=== PATIENT | female | born 1960 | race Caucasian/White ===

== ENCOUNTER 2017-10-19 12:26 | Emergency (ER) | payer MEDICAID ==
[~2017-10-19] VITALS: Ht 156.2 cm; Wt 105.0 kg
[~2017-10-19 12:26] MED LIST: COL0.6T
[2017-10-19 12:57] LABS: CLARITY,URINE CLOUDY (Clear); COLOR,URINE STRAW (Yellow); GLUCOSE, URINE NEGATIVE (Neg); KETONES,URINE NEGATIVE (Neg); LEUKOCYTE ESTERASE ,URINE LARGE (Neg); NITRITES, URINE NEGATIVE (Neg); OCCULT BLOOD,URINE LARGE (Neg); PROTEIN,URINE 30 mg/dl (Neg); UROBILINOGEN,URINE 0.2 E.U/dL (0.2-1.0)
[2017-10-19 13:03] LABS: UA COLLECTION TYPE CLN CATCH MIDSTREAM
[2017-10-19 13:04] LABS: BACTERIA,URINE 2+ /HPF (Neg); MUCUS STRANDS NONE SEEN /LPF (Neg); SQUAMOUS EPITHELIAL CELL,UR FEW /LPF (FEW); WBC CLUMPS,URINE MODERATE /HPF (NEGATIVE); WBC,URINE TNTC /HPF (0-4)
[2017-10-19] MEDS ORDERED: nitrofuran/nitrofuran macrocrysal 100 MG capsule PO ONE (14:05)
[2017-10-19] MEDS ORDERED: NITR100C6 PO (14:06)
[2017-10-19 14:23] VITALS: BP 92/57
== END 2017-10-19 14:24 | disposition home or self-care (01) ==
LOC: ER 12:26
DX: N39.0 Urinary tract infection, site not specified (principal); E78.00 Pure hypercholesterolemia, unspecified; M19.90 Unspecified osteoarthritis, unspecified site; Z90.710 Acquired absence of both cervix and uterus; Z79.899 Other long term (current) drug therapy
CPT/HCPCS: 81001; 87077; 87088; 87186; 99284

== ENCOUNTER 2020-03-05 17:59 | Emergency (ER) | payer MEDICAID ==
[~2020-03-05] VITALS: Ht 154.9 cm; Wt 97.7 kg
[~2020-03-05 17:59] MED LIST changes: +NITR100C6 PO
[2020-03-05] MEDS ORDERED: morphine 4 MG/ML inj SYRINge IM ONE (18:50)
[2020-03-05] MEDS ORDERED: ondansetron/PF 4mg/2ml inj IM ONE (18:50)
[2020-03-05 19:35] LABS: COLOR,URINE YELLOW (Yellow); GLUCOSE, URINE NEGATIVE (Neg); KETONES,URINE NEGATIVE (Neg); LEUKOCYTE ESTERASE ,URINE MODERATE (Neg); NITRITES, URINE NEGATIVE (Neg); OCCULT BLOOD,URINE MODERATE (Neg); PROTEIN,URINE NEGATIVE (Neg); UROBILINOGEN,URINE 0.2 E.U/dL (0.2-1.0)
[2020-03-05 19:41] LABS: UA COLLECTION TYPE CLN CATCH MIDSTREAM
[2020-03-05 19:42] LABS: BACTERIA,URINE 1+ /HPF (Neg); CLARITY,URINE SLIGHTLY CLOUDY (Clear); RBC,URINE 0-2 /HPF (0-2); SQUAMOUS EPITHELIAL CELL,UR FEW /LPF (FEW)
[2020-03-05 20:38] LABS: BASOPHILS # (AUTO) 0.1 X10'3 (0-0.2); BASOPHILS % (AUTO) 0.5 % (0-1); EOSINOPHILS # (AUTO) 0.1 X10'3 (0-0.9); EOSINOPHILS % (AUTO) 0.9 % (0-6); HEMATOCRIT 40.4 % (35.0-45.0); HEMOGLOBIN 13.4 g/dl (12.0-16.0); LYMPHOCYTES # (AUTO) 1.2 X10'3 (1.1-4.8); LYMPHOCYTES % (AUTO) 10.5 % (21-51); MEAN CORPUSCULAR HEMOGLOBIN 31.3 PG (27.0-31.0); MEAN CORPUSCULAR HGB CONC 33.2 g/dL (33.0-36.5); MEAN CORPUSCULAR VOLUME 94.1 FL (78-98); MEAN PLATELET VOLUME 7.1 FL (7.4-10.4); MONOCYTES # (AUTO) 0.4 X10'3 (0-0.9); MONOCYTES % (AUTO) 3.5 % (2-12); NEUTROPHILS # (AUTO) 9.7 X10'3 (1.8-7.7); NEUTROPHILS % (AUTO) 84.6 % (42-75); PLATELET COUNT 481 X10'3 (140-440); RED BLOOD COUNT 4.29 X10'6 (4.20-5.60); RED CELL DISTRIBUTION WIDTH 14.3 % (11.5-14.5); WHITE BLOOD COUNT 11.5 X10'3 (4.5-11.0)
[2020-03-05 21:07] LABS: ALANINE AMINOTRANSFERASE 17 U/L (12-78); ALBUMIN 3.4 G/DL (3.4-5.0); ALBUMIN/GLOBULIN RATIO 0.9 (1.1-1.5); ALKALINE PHOSPHATASE 141 IU/L (46-116); ANION GAP 5 (8-16); ASPARTATE AMINO TRANSFERASE 17 U/L (10-37); BILIRUBIN,TOTAL 0.3 MG/DL (0.1-1.0); BLOOD UREA NITROGEN 22 MG/DL (7-18); C-REACTIVE PROTEIN 2.55 MG/DL (0.0-0.5); CALCIUM 8.9 MG/DL (8.5-10.1); CHLORIDE 103 MMOL/L (99-107); CREATININE 1.05 MG/DL (0.40-0.90); GLUCOSE 141 MG/DL (70-104); LIPASE 191 U/L (73-393); POTASSIUM 3.4 MMOL/L (3.5-5.1); SODIUM 136 MMOL/L (135-145); TOTAL CARBON DIOXIDE 28.4 MMOL/L (24-32); TOTAL PROTEIN 7.3 G/DL (6.4-8.2); eGFR 53 ML/MIN
[2020-03-05] MEDS ORDERED: AMOX-422 PO (21:34)
[2020-03-05] MEDS ORDERED: TRAM50TA2 PO (21:34)
[2020-03-05 22:18] VITALS: BP 160/76
== END 2020-03-05 22:19 | disposition home or self-care (01) ==
LOC: ER 17:59
DX: M54.5 Low back pain (principal); N39.0 Urinary tract infection, site not specified; E78.00 Pure hypercholesterolemia, unspecified; M19.90 Unspecified osteoarthritis, unspecified site; G89.29 Other chronic pain; Z90.710 Acquired absence of both cervix and uterus; Z79.899 Other long term (current) drug therapy
CPT/HCPCS: 36415; 72131; 80053; 81001; 83605; 83690; 84145; 85025; 85651; 86140; 87040; 87077; 87088; 87186; 96372; 99284; J2270; J2405

== ENCOUNTER 2020-08-23 06:04 | Emergency (ER) | payer MEDICAID ==
[~2020-08-23] VITALS: Ht 154.9 cm; Wt 97.7 kg
[2020-08-23 06:12] VITALS: BP 173/92
[2020-08-23] MEDS ORDERED: acetaminophen 325mg tablet PO ONE (06:30)
[2020-08-23] MEDS ORDERED: ketorolac tromethamine 15mg/ml inj. IM ONE (06:30)
[2020-08-23 06:33] LABS: CLARITY,URINE SLIGHTLY CLOUDY (Clear); COLOR,URINE YELLOW (Yellow); GLUCOSE, URINE NEGATIVE (Neg); KETONES,URINE NEGATIVE (Neg); LEUKOCYTE ESTERASE ,URINE MODERATE (Neg); NITRITES, URINE POSITIVE (Neg); OCCULT BLOOD,URINE MODERATE (Neg); PROTEIN,URINE 30 mg/dl (Neg); UROBILINOGEN,URINE 0.2 E.U/dL (0.2-1.0)
[2020-08-23 06:35] LABS: UA COLLECTION TYPE CLN CATCH MIDSTREAM
[2020-08-23 06:38] LABS: WBC,URINE TNTC /HPF (0-4)
[2020-08-23 06:39] LABS: BACTERIA,URINE 4+ /HPF (Neg); SQUAMOUS EPITHELIAL CELL,UR FEW /LPF (FEW)
[2020-08-23] MEDS ORDERED: CEFD300C3 PO (07:32)
== END 2020-08-23 07:56 | disposition home or self-care (01) ==
LOC: ER 06:04
DX: N39.0 Urinary tract infection, site not specified (principal); M54.5 Low back pain; E78.00 Pure hypercholesterolemia, unspecified; I10 Essential (primary) hypertension; G89.29 Other chronic pain; F17.200 Nicotine dependence, unspecified, uncomplicated; Z79.899 Other long term (current) drug therapy
CPT/HCPCS: 81001; 87077; 87088; 87186; 96372; 99283; J1885

== ENCOUNTER 2020-10-08 15:13 | Emergency (ER) | payer MEDICAID ==
[~2020-10-08] VITALS: Ht 154.9 cm; Wt 103.0 kg
[2020-10-08 15:46] VITALS: BP 160/74
[2020-10-08] MEDS ORDERED: AMOX-422 PO (16:18)
== END 2020-10-08 16:26 | disposition home or self-care (01) ==
LOC: ER 15:13
DX: J32.9 Chronic sinusitis, unspecified (principal); E78.00 Pure hypercholesterolemia, unspecified; G89.29 Other chronic pain; I10 Essential (primary) hypertension; M19.90 Unspecified osteoarthritis, unspecified site; Z90.710 Acquired absence of both cervix and uterus; Z79.2 Long term (current) use of antibiotics; Z79.899 Other long term (current) drug therapy
CPT/HCPCS: 99283

== ENCOUNTER 2020-11-17 14:41 | Emergency (ER) | payer MEDICAID ==
[~2020-11-17] VITALS: Ht 154.9 cm; Wt 102.0 kg
[2020-11-17 15:32] VITALS: BP 171/88
--- NOTE | 2020-11-17 15:49 | NUR ---
PT TO CT VIA [facility] WITH CHIROPRACTIC PHYSICIAN
--- NOTE | 2020-11-17 16:36 | NUR ---
PATIENT IS BEING PREPARED FOR DC, BUT STATES SHE HAS TO GO TO THE BATHROOM AND REFUSES TO USE COMMODE. DC PAPERWORK GIVEN AND VERBALIZED UNDERSTANDING. DEPARTED TO BATHROOM IN HALLWAY WITH BELONGINGS.
== END 2020-11-17 16:40 | disposition home or self-care (01) ==
LOC: ER 14:42
DX: M25.561 Pain in right knee (principal); R51.9 Headache, unspecified; E78.00 Pure hypercholesterolemia, unspecified; I10 Essential (primary) hypertension; G89.29 Other chronic pain; Z87.440 Personal history of urinary (tract) infections; Z90.710 Acquired absence of both cervix and uterus; Z79.899 Other long term (current) drug therapy
CPT/HCPCS: 70450; 73564; 99284

== ENCOUNTER 2022-12-19 10:03 | Emergency (ER) | payer MEDICAID ==
[~2022-12-19] VITALS: Ht 154.9 cm; Wt 107.3 kg
[~2022-12-19 10:03] MED LIST changes: -COL0.6T; +IBUP-2697 PO; -NITR100C6 PO
[2022-12-19 10:10] VITALS: BP 168/70
[2022-12-19] MEDS ORDERED: bacitracin 15gm ointment TP ONE (12:35)
[2022-12-19] MEDS ORDERED: cephalexin 250mg capsule PO ONE (12:35)
[2022-12-19] MEDS ORDERED: CEPH250T PO (12:37)
[2022-12-19] MEDS ORDERED: NEOM1OIN8 TOP (12:37)
[2022-12-19 12:39] LABS: CLARITY,URINE CLOUDY (Clear); COLOR,URINE YELLOW (Yellow); GLUCOSE, URINE NEGATIVE (Neg); KETONES,URINE NEGATIVE (Neg); LEUKOCYTE ESTERASE ,URINE SMALL (Neg); NITRITES, URINE POSITIVE (Neg); OCCULT BLOOD,URINE TRACE-INTACT (Neg); PH,URINE 6.5 (4.8-8.0); PROTEIN,URINE NEGATIVE (Neg); UA COLLECTION TYPE CLN CATCH MIDSTREAM; UROBILINOGEN,URINE 0.2 E.U/dL (0.2-1.0)
[2022-12-19 12:44] LABS: SQUAMOUS EPITHELIAL CELL,UR MANY /LPF (FEW)
[2022-12-19 12:45] LABS: BACTERIA,URINE 2+ /HPF (Neg); RBC,URINE 0-2 /HPF (0-2)
--- NOTE | 2022-12-19 12:54 | NUR ---
Patient evaluated, treated and discharged by provider prior to nurse assessment.
== END 2022-12-19 12:54 | disposition home or self-care (01) ==
LOC: ER 10:03
DX: L02.211 Cutaneous abscess of abdominal wall (principal); E78.00 Pure hypercholesterolemia, unspecified; I10 Essential (primary) hypertension; G89.29 Other chronic pain; M54.9 Dorsalgia, unspecified; Z79.899 Other long term (current) drug therapy
CPT/HCPCS: 10060; 81001; 99283; A6258; A6449

== ENCOUNTER 2023-04-07 00:10 | Emergency (ER) | payer MEDICAID ==
[~2023-04-07] VITALS: Ht 154.9 cm; Wt 220.0 kg
[~2023-04-07 00:10] MED LIST changes: +NEOM1OIN8 TOP
[2023-04-07 00:15] VITALS: BP 145/94
[2023-04-07 00:58] LABS: BASOPHILS % (AUTO) 0.4 % (0-1); EOSINOPHILS # (AUTO) 0.2 X10'3 (0-0.9); EOSINOPHILS % (AUTO) 1.7 % (0-6); HEMATOCRIT 41.6 % (35.0-45.0); HEMOGLOBIN 13.6 g/dl (12.0-16.0); LYMPHOCYTES # (AUTO) 2.2 X10'3 (1.1-4.8); LYMPHOCYTES % (AUTO) 22.7 % (21-51); MEAN CORPUSCULAR HEMOGLOBIN 28.9 PG (27.0-31.0); MEAN CORPUSCULAR HGB CONC 32.6 g/dL (33.0-36.5); MEAN CORPUSCULAR VOLUME 88.4 FL (78-98); MEAN PLATELET VOLUME 7.8 FL (7.4-10.4); MONOCYTES # (AUTO) 0.6 X10'3 (0-0.9); MONOCYTES % (AUTO) 5.8 % (2-12); NEUTROPHILS # (AUTO) 6.7 X10'3 (1.8-7.7); NEUTROPHILS % (AUTO) 69.4 % (42-75); PLATELET COUNT 551 X10'3 (140-440); RED CELL DISTRIBUTION WIDTH 15.8 % (11.5-14.5); WHITE BLOOD COUNT 9.7 X10'3 (4.5-11.0)
[2023-04-07 01:12] LABS: ALANINE AMINOTRANSFERASE 14 U/L (12-78); ALBUMIN 3.3 G/DL (3.4-5.0); ALBUMIN/GLOBULIN RATIO 0.8 (1.1-1.5); ALKALINE PHOSPHATASE 147 IU/L (46-116); ANION GAP 10 (8-16); ASPARTATE AMINO TRANSFERASE 14 U/L (10-37); BILIRUBIN,TOTAL 0.4 MG/DL (0.1-1.0); BLOOD UREA NITROGEN 20 MG/DL (7-18); BUN/CREATININE RATIO 13.8 (10.0-20.0); CALCIUM 9.1 MG/DL (8.5-10.1); CHLORIDE 105 MMOL/L (99-107); CREATININE 1.45 MG/DL (0.40-0.90); GLUCOSE 131 MG/DL (70-104); LIPASE 95 U/L (73-393); POTASSIUM 3.4 MMOL/L (3.5-5.1); SODIUM 140 MMOL/L (135-145); TOTAL CARBON DIOXIDE 25.3 MMOL/L (24-32); TOTAL PROTEIN 7.6 G/DL (6.4-8.2); eGFR 36 ML/MIN
[2023-04-07 05:53] LABS: URINE HCG NEGATIVE (NEG)
[2023-04-07 06:01] LABS: CLARITY,URINE SLIGHTLY CLOUDY (Clear); COLOR,URINE YELLOW (Yellow); GLUCOSE, URINE NEGATIVE (Neg); KETONES,URINE NEGATIVE (Neg); LEUKOCYTE ESTERASE ,URINE LARGE (Neg); NITRITES, URINE NEGATIVE (Neg); OCCULT BLOOD,URINE SMALL (Neg); PH,URINE 6.5 (4.8-8.0); PROTEIN,URINE 100 mg/dl (Neg); UROBILINOGEN,URINE 0.2 E.U/dL (0.2-1.0)
[2023-04-07] MEDS ORDERED: SULF1TAB49 PO (06:22)
[2023-04-07 06:24] LABS: UA COLLECTION TYPE CLN CATCH MIDSTREAM
[2023-04-07 06:25] LABS: BACTERIA,URINE 4+ /HPF (Neg); SQUAMOUS EPITHELIAL CELL,UR MODERATE /LPF (FEW); WBC,URINE TNTC /HPF (0-4)
[2023-04-07] MEDS ORDERED: potassium Cl 20 mEq SR tablet PO ONE (06:25)
[2023-04-07] MEDS ORDERED: sulfamethoxazole/trimethoprim DS (800/160mg) tablet PO ONE (06:25)
[2023-04-07 06:26] LABS: MUCUS STRANDS NONE SEEN /LPF (Neg); WBC CLUMPS,URINE FEW /HPF (NEGATIVE)
== END 2023-04-07 07:05 | disposition home or self-care (01) ==
LOC: ER 00:11
DX: N39.0 Urinary tract infection, site not specified (principal); E78.00 Pure hypercholesterolemia, unspecified; I10 Essential (primary) hypertension; G89.29 Other chronic pain; M19.90 Unspecified osteoarthritis, unspecified site; F17.200 Nicotine dependence, unspecified, uncomplicated; F17.210 Nicotine dependence, cigarettes, uncomplicated; Z90.710 Acquired absence of both cervix and uterus; Z79.899 Other long term (current) drug therapy; Z79.2 Long term (current) use of antibiotics; Z87.442 Personal history of urinary calculi
CPT/HCPCS: 36415; 80053; 81001; 81025; 83690; 85025; 87088; 99283

== ENCOUNTER 2024-11-27 17:47 | Inpatient (IN) | payer MEDICAID ==
[~2024-11-27] VITALS: Ht 154.9 cm; Wt 95.5 kg
[2024-11-27] VITALS (9 sets, daily range): BP systolic 142–179; BP diastolic 62–79; PULSE 66–86; RESP 13–20; TEMP 97.5–97.8; O2SAT 97–100
[2024-11-27 18:02] LABS: EOSINOPHILS # (AUTO) 0.2 X10'3 (0-0.9); MEAN PLATELET VOLUME 7.5 FL (7.4-10.4); MONOCYTES # (AUTO) 0.7 X10'3 (0-0.9); NEUTROPHILS # (AUTO) 8.1 X10'3 (1.8-7.7)
[2024-11-27 18:04] LABS: BASOPHILS % (AUTO) 0.3 % (0-1); EOSINOPHILS % (AUTO) 1.7 % (0-6); HEMATOCRIT 39.9 % (35.0-45.0); HEMOGLOBIN 12.9 g/dl (12.0-16.0); LYMPHOCYTES # (AUTO) 1.7 X10'3 (1.1-4.8); LYMPHOCYTES % (AUTO) 15.9 % (21-51); MEAN CORPUSCULAR HEMOGLOBIN 28.1 PG (27.0-31.0); MEAN CORPUSCULAR HGB CONC 32.3 g/dL (33.0-36.5); MEAN CORPUSCULAR VOLUME 86.9 FL (78-98); MONOCYTES % (AUTO) 6.2 % (2-12); NEUTROPHILS % (AUTO) 75.9 % (42-75); PLATELET COUNT 799 X10'3 (140-440); RED BLOOD COUNT 4.59 X10'6 (4.20-5.60); RED CELL DISTRIBUTION WIDTH 17.7 % (11.5-14.5); WHITE BLOOD COUNT 10.7 X10'3 (4.5-11.0)
[2024-11-27] MEDS ORDERED: heparin 1,000unit/ml 10ml vial 10 ML ONE ×2 (18:07→18:28)
[2024-11-27] MEDS ORDERED: verapamil 2.5 mg/ml inj IV ONE (18:07)
[2024-11-27] MEDS ORDERED: LIDOcaine 1% 30ml preserv. free vial ONE (18:07)
[2024-11-27] MEDS ORDERED: fentaNYL/PF 50MCG/1 ML 2ML syringe ONE (18:07)
[2024-11-27] MEDS ORDERED: iohexol 350MG/ML 100ml bottle IV ONE (18:07)
[2024-11-27] MEDS ORDERED: midazolam 1 mg/ML 2ml injection ONE (18:07)
[2024-11-27] MEDS ORDERED: nitroGLYCERIN 500mcg/5mL D5W 5 ML IV ONE ×2 (18:08→18:51)
[2024-11-27 18:25] LABS: ANION GAP 7 (8-16); BLOOD UREA NITROGEN 37 MG/DL (7-18); BUN/CREATININE RATIO 33.6 (10.0-20.0); CHLORIDE 103 MMOL/L (99-107); GLUCOSE 244 MG/DL (70-104); SODIUM 140 MMOL/L (135-145); TOTAL CARBON DIOXIDE 30.3 MMOL/L (24-32)
[2024-11-27 18:26] LABS: ALANINE AMINOTRANSFERASE 18 U/L (12-78); ALBUMIN 3.4 G/DL (3.4-5.0); ALBUMIN/GLOBULIN RATIO 0.8 (1.1-1.5); ALKALINE PHOSPHATASE 174 IU/L (46-116); ASPARTATE AMINO TRANSFERASE 7 U/L (10-37); BILIRUBIN,TOTAL 0.1 MG/DL (0.1-1.0); CALCIUM 9.4 MG/DL (8.5-10.1); PRO BRAIN NATRIURETIC PEPTIDE 817 PG/ML (0-125); TOTAL PROTEIN 7.7 G/DL (6.4-8.2); eCRCL 39 ML/MIN; eGFR 50 ML/MIN
[2024-11-27 18:29] LABS: ANISOCYTOSIS 1+; MICROCYTOSIS FEW; PLATELET ESTIMATE INCREASED; POTASSIUM 2.8 MMOL/L (3.5-5.1)
[2024-11-27] MEDS ORDERED: phenylephrine 10mg/ml inj. ONE (18:35)
[2024-11-27] MEDS ORDERED: aspirin 325mg tablet ONE (19:01)
[2024-11-27] MEDS ORDERED: ticagrelor 90mg tablet ONE (19:01)
[2024-11-27] MEDS ORDERED: iohexol 300mg/ml 100ml inj. ONE (19:03)
[2024-11-27] MEDS ORDERED: magnesium sulf-water 2g/50mL 50 ML IV PRN ×2 (20:10→20:20)
[2024-11-27] MEDS ORDERED: potassium Cl 40MEQ/1/2NS 520ml 520 ML IV PRN ×2 (20:10→20:20)
[2024-11-27] MEDS ORDERED: potassium Cl 20 mEq SR tablet PO PRN ×3 (20:10→20:20)
[2024-11-27] MEDS ORDERED: magnesium sulf-water 4G/100mL 100 ML IV PRN ×2 (20:10→20:20)
[2024-11-27] MEDS ORDERED: magnesium Cl slow-release 64mg tablet PO PRN ×2 (20:10→20:20)
[2024-11-27] MEDS ORDERED: HYDROcodone/acetaminophen 10/325mg tab PO PRN (20:20)
[2024-11-27] MEDS ORDERED: acetaminophen 325mg tablet PO PRN ×2 (20:20)
[2024-11-27] MEDS: normal saline 1000ml 1,000 ML IV SCH (20:20)
[2024-11-27] MEDS ORDERED: morphine 2 MG/ML inj. syringe IV PRN (20:20)
[2024-11-27] MEDS ORDERED: ondansetron/PF 4mg/2ml inj IV PRN (20:20)
[2024-11-27] MEDS ORDERED: HYDROcodone/acetaminophen 5mg/325mg tablet PO PRN (20:20)
[2024-11-27] MEDS ORDERED: mag hydrox/Alum hydrox/simeth 30ml oral suspension PO PRN (20:20)
[2024-11-27] MEDS ORDERED: dextrose 50%-water 50ml dispensing syringe IV PRN ×2 (21:05)
[2024-11-27] MEDS ORDERED: DEXTROSE 15 GM of carb/4 tabs (each vial/BOTTLE has 4 tablets) PO PRN ×2 (21:05)
[2024-11-27] MEDS ORDERED: glucagon, human recombinant 1mg kit SUBCUT PRN (21:05)
[2024-11-27 21:09] LABS: HEMOGLOBIN A1C 6.3 % (4.5-6.2)
[2024-11-27] MEDS: metoprolol tartrate 1mg/ml inj IV ONE (23:16)
[2024-11-28] VITALS (10 sets, daily range): BP systolic 114–158; BP diastolic 57–85; PULSE 62–82; RESP 13–19; TEMP 97.7–98.6; O2SAT 97–99
[2024-11-28] MEDS: potassium Cl 20 mEq SR tablet PO ONE (00:58)
[2024-11-28] MEDS: potassium Cl 20 mEq SR tablet PO PRN (05:13)
[2024-11-28 05:41] LABS: BASOPHILS # (AUTO) 0.1 X10'3 (0-0.2); EOSINOPHILS # (AUTO) 0.1 X10'3 (0-0.9); HEMOGLOBIN 12.8 g/dl (12.0-16.0); MONOCYTES # (AUTO) 0.8 X10'3 (0-0.9); WHITE BLOOD COUNT 11.5 X10'3 (4.5-11.0)
[2024-11-28 05:45] LABS: BASOPHILS % (AUTO) 0.7 % (0-1); HEMATOCRIT 39.1 % (35.0-45.0); LYMPHOCYTES # (AUTO) 1.4 X10'3 (1.1-4.8); LYMPHOCYTES % (AUTO) 12.5 % (21-51); MEAN CORPUSCULAR HEMOGLOBIN 28.1 PG (27.0-31.0); MEAN CORPUSCULAR HGB CONC 32.7 g/dL (33.0-36.5); MEAN CORPUSCULAR VOLUME 86.1 FL (78-98); MEAN PLATELET VOLUME 7.4 FL (7.4-10.4); MONOCYTES % (AUTO) 7.1 % (2-12); NEUTROPHILS % (AUTO) 78.7 % (42-75); PLATELET COUNT 712 X10'3 (140-440); RED BLOOD COUNT 4.54 X10'6 (4.20-5.60); RED CELL DISTRIBUTION WIDTH 17.6 % (11.5-14.5)
[2024-11-28 05:53] LABS: PROTHROMBIN TIME 10.5 SECONDS (9.0-12.0)
[2024-11-28 06:07] LABS: ALANINE AMINOTRANSFERASE 34 U/L (12-78); ALBUMIN 2.8 G/DL (3.4-5.0); ALBUMIN/GLOBULIN RATIO 0.7 (1.1-1.5); ALKALINE PHOSPHATASE 135 IU/L (46-116); ANION GAP 10 (8-16); ASPARTATE AMINO TRANSFERASE 208 U/L (10-37); BILIRUBIN,TOTAL 0.3 MG/DL (0.1-1.0); BLOOD UREA NITROGEN 28 MG/DL (7-18); BUN/CREATININE RATIO 34.6 (10.0-20.0); CALCIUM 8.8 MG/DL (8.5-10.1); CHLORIDE 106 MMOL/L (99-107); CHOL/HDL RATIO 3.9 (0.00-4.99); CHOLESTEROL 194 MG/DL (0-200); CREATININE 0.81 MG/DL (0.40-0.90); GLUCOSE 92 MG/DL (70-104); HDL CHOLESTEROL 50 MG/DL (35-60); LDL CHOLESTEROL 125 MG/DL (50-100); MAGNESIUM 1.8 MG/DL (1.5-2.4); PHOSPHORUS 3.2 MG/DL (2.3-4.5); POTASSIUM 3.6 MMOL/L (3.5-5.1); SODIUM 139 MMOL/L (135-145); TOTAL CARBON DIOXIDE 23.3 MMOL/L (24-32); TOTAL PROTEIN 6.8 G/DL (6.4-8.2); TRIGLYCERIDES 116 MG/DL (20-135); eCRCL 53 ML/MIN; eGFR 71 ML/MIN
[2024-11-28] MEDS: INSULIN LISPRO 100 UNIT/ML INSULN.PEN MULTI-DOSE SQ SCH ×2 (07:00→09:00)
[2024-11-28] MEDS ORDERED: aspirin 81mg, enteric-coated 1 TAB TABLET.DR PO SCH (08:00)
[2024-11-28] MEDS: metoprolol tartrate 25mg tablet PO SCH ×2 (08:00)
[2024-11-28] MEDS: ticagrelor 90mg tablet PO SCH (08:00)
[2024-11-28] MEDS: K and/or MAG REPLACEMENT MC SCH (08:00)
[2024-11-28] MEDS ORDERED: K and/or MAG REPLACEMENT MC SCH (08:00)
[2024-11-28] MEDS: aspirin 81mg, enteric-coated 1 TAB TABLET.DR PO SCH (08:00)
[2024-11-28] MEDS ORDERED: ticagrelor 90mg tablet PO SCH (08:00)
[2024-11-28] MEDS ORDERED: ATOR10TA87 PO (11:03)
[2024-11-28] MEDS ORDERED: FURO-150 PO (11:03)
[2024-11-28] MEDS ORDERED: LOP25T PO (11:03)
[2024-11-28] MEDS ORDERED: ASPI-1071 PO (11:03)
[2024-11-29 02:31] VITALS: BP 141/53; PULSE 65; RESP 18; TEMP 97.8; O2SAT 100
[2024-11-29 07:16] LABS: BASOPHILS % (AUTO) 0.3 % (0-1); EOSINOPHILS # (AUTO) 0.1 X10'3 (0-0.9); EOSINOPHILS % (AUTO) 1.9 % (0-6); HEMATOCRIT 36.9 % (35.0-45.0); HEMOGLOBIN 11.9 g/dl (12.0-16.0); LYMPHOCYTES # (AUTO) 1.3 X10'3 (1.1-4.8); LYMPHOCYTES % (AUTO) 16.4 % (21-51); MEAN CORPUSCULAR HEMOGLOBIN 28.4 PG (27.0-31.0); MEAN CORPUSCULAR HGB CONC 32.4 g/dL (33.0-36.5); MEAN CORPUSCULAR VOLUME 87.8 FL (78-98); MEAN PLATELET VOLUME 7.5 FL (7.4-10.4); MONOCYTES # (AUTO) 0.6 X10'3 (0-0.9); MONOCYTES % (AUTO) 7.7 % (2-12); NEUTROPHILS # (AUTO) 5.8 X10'3 (1.8-7.7); NEUTROPHILS % (AUTO) 73.7 % (42-75); PLATELET COUNT 608 X10'3 (140-440); RED CELL DISTRIBUTION WIDTH 17.6 % (11.5-14.5); WHITE BLOOD COUNT 7.9 X10'3 (4.5-11.0)
[2024-11-29 07:22] VITALS: BP 149/50; PULSE 70; RESP 16; TEMP 96.8; O2SAT 100
[2024-11-29 07:41] LABS: ALANINE AMINOTRANSFERASE 19 U/L (12-78); ALBUMIN 2.6 G/DL (3.4-5.0); ALBUMIN/GLOBULIN RATIO 0.6 (1.1-1.5); ALKALINE PHOSPHATASE 121 IU/L (46-116); ANION GAP 10 (8-16); ASPARTATE AMINO TRANSFERASE 72 U/L (10-37); BILIRUBIN,TOTAL 0.3 MG/DL (0.1-1.0); BLOOD UREA NITROGEN 25 MG/DL (7-18); BUN/CREATININE RATIO 28.4 (10.0-20.0); CALCIUM 8.4 MG/DL (8.5-10.1); CHLORIDE 108 MMOL/L (99-107); CREATININE 0.88 MG/DL (0.40-0.90); GLUCOSE 112 MG/DL (70-104); MAGNESIUM 2.1 MG/DL (1.5-2.4); PHOSPHORUS 2.9 MG/DL (2.3-4.5); POTASSIUM 3.8 MMOL/L (3.5-5.1); SODIUM 139 MMOL/L (135-145); TOTAL CARBON DIOXIDE 20.7 MMOL/L (24-32); TOTAL PROTEIN 6.7 G/DL (6.4-8.2); eCRCL 49 ML/MIN; eGFR 65 ML/MIN
[2024-11-29 08:00] VITALS: RESP 17; O2SAT 97
[2024-11-29] MEDS: furosemide 20 MG/2 ML vial IV SCH (08:00)
[2024-11-29] MEDS: atorvastatin 20mg tablet PO SCH (08:00)
[2024-11-29 11:00] VITALS: BP 135/62; PULSE 70; RESP 16; TEMP 98; O2SAT 98
[2024-11-29] MEDS ORDERED: TICA90TA PO ×2 (12:16→13:51)
[2024-11-29] MEDS ORDERED: ATOR20TA66 PO (13:51)
[2024-11-29] MEDS ORDERED: ASPI-1265 PO (13:51)
[2024-11-29] MEDS ORDERED: LOP25T PO (13:51)
[2024-11-29] MEDS ORDERED: FURO20TA4 PO (13:51)
== END 2024-11-29 16:19 | disposition home health service (06) | DRG 174 ==
LOC: ER 17:48 → PCU 3S 20:23
PROVIDERS: ADMIT Internal Medicine Pulmonary Disease; ATTEND Internal Medicine
PROC: 027035Z Dilation of Coronary Artery, One Artery with Two Drug-eluting Intraluminal Devices, Percutaneous Approach (ICD-10-PCS; principal; 2024-11-27)
PROC: 4A023N7 Measurement of Cardiac Sampling and Pressure, Left Heart, Percutaneous Approach (ICD-10-PCS; 2024-11-27)
PROC: B2111ZZ Fluoroscopy of Multiple Coronary Arteries using Low Osmolar Contrast (ICD-10-PCS; 2024-11-27)
DX: I21.09 ST elevation (STEMI) myocardial infarction involving other coronary artery of anterior wall (principal); E11.9 Type 2 diabetes mellitus without complications; E78.00 Pure hypercholesterolemia, unspecified; I10 Essential (primary) hypertension; G89.29 Other chronic pain; M54.9 Dorsalgia, unspecified; F17.210 Nicotine dependence, cigarettes, uncomplicated; E87.6 Hypokalemia; Z79.899 Other long term (current) drug therapy; Z90.710 Acquired absence of both cervix and uterus
CPT/HCPCS: 36415; 71045; 80053; 80061; 82948; 83036; 83735; 83880; 84100; 84484; 85008; 85025; 85610; 87081; 93005; 93306; 93454; 99152; 99153; 99291; A6258; C1725; C1751; C1760; C1769; C1874; C1894; C9606; G0378; J1644; J1815; J1940; J2003; J2250; J2371; J3010; J3490; J7030; Q9967